=== PATIENT | male | born 1995 | race African-American/Black ===

== ENCOUNTER 2018-08-02 23:01 | Emergency (ER) | payer OTHER ==
[2018-08-02 23:45] LABS: #Basophils 0.1 thou/uL (0.0-0.2); #Eosinphils 0.1 thou/uL (0.0-0.7); #Monocytes 0.4 thou/uL (0.11-0.59); %Basophils 1.5 % (0.0-1.0); %Lymphocytes 43.4 % (21.0-51.0); %Monocytes 8.8 % (0.0-10.0); %Neutrophils 43.3 % (42.0-75.0); Hemoglobin 15.3 g/dL (14.0-18.0); Mean Corpuscular HGB CONC 33.2 g/dL (32.0-36.0); Mean Corpuscular Volume 87.5 fL (78.0-98.0); Mean Platelet Volume 8.2 fL (7.4-10.4); Platelet Count 224 thou/uL (130-400); RBC Distribution Width 12.7 % (11.5-14.5); Red Blood Cell (RBC) Count 5.25 mill/uL (4.70-6.10); White Blood Cell (WBC) Count 4.6 thou/uL (4.8-10.8)
--- NOTE | 2018-08-02 23:51 | RAD ---
CHEST ONE VIEW: 08/02/18 HISTORY: Chest pain. FINDINGS: The cardiac silhouette is magnified by projection. Pulmonary vasculature is unremarkable. Linear opac ity at the left posterior lung base is apparent. No lobar consolidation or evidence of pneumothorax. telephonic rn leads overlie the chest. IMPRESSION: Linear opacity left posterior lung base may represent linear atelectasis or mild infiltrate. Clinical correlation regarding other signs and symptoms of left basilar symptoms is required. PA and lateral views of the chest may be helpful for better characterization. POS: [facility]
[2018-08-03 00:06] LABS: ALT (SGPT) 14 U/L (8-55); AST (SGOT) 17 U/L (5-34); Albumin 4.3 g/dL (3.5-5.0); Alkaline Phosphatase 60 U/L (40-150); Anion Gap 10 mmol/L (10-20); BUN (Urea Nitrogen) 10 mg/dL (8.9-20.6); Bilirubin, Total 0.5 mg/dL (0.2-1.2); Calc. Creatinine Clearance 0 mL/min (70-130); Carbon Dioxide 27 mmol/L (22-29); Chloride 107 mmol/L (98-107); Estimated GFR-MDRD Greater than 90; Globulin 2.7 g/dL (2.4-3.5); Glucose 87 mg/dL (70-105); Potassium 3.9 mmol/L (3.5-5.1); Sodium 140 mmol/L (136-145)
[2018-08-03 00:11] LABS: CKMB 0.8 ng/mL (0-6.6); Troponin I Less than 0.010 ng/mL (< 0.028)
== END 2018-08-03 01:20 | disposition home or self-care (01) ==
LOC: EEVIPCON 23:01 → ERS 23:01
DX: R07.2 Precordial pain (principal); J45.909 Unspecified asthma, uncomplicated
CPT/HCPCS: 71045; 80053; 82553; 84484; 85025; 93005; J7620

== ENCOUNTER 2018-08-20 21:43 | Emergency (ER) | payer OTHER ==
--- NOTE | 2018-08-20 22:42 | RAD ---
PA AND LATERAL CHEST: INDICATIONS: Evaluate for razor blade FINDINGS: No radiopaque foreign body is seen involving the thorax. There are areas of subsegmental volume loss within the retrocardiac left lower lobe. No pleural effusion or pneumothorax is evident. IMPRESSION: 1. Mild left basilar atelectasis. 2. No radiopaque foreign body to suggest ingested razor blade within the region of the thorax. POS: [facility]
--- NOTE | 2018-08-20 22:43 | RAD ---
ABDOMEN TWO VIEWS: INDICATIONS: Swallowed razor blade. COMPARISON: Prior exam dated 08/20/2018. FINDINGS: The previously seen radiopaque foreign body involving the mid abdomen is no longer demonstrated. The bowel gas pattern is nonspecific but without evidence of obstruction. A mild amount of retained sto ol is seen within the colon. No acute osseous abnormality is evident. IMPRESSION: No radiopaque foreign body demonstrated. POS: [facility]
== END 2018-08-20 22:57 | disposition home or self-care (01) ==
LOC: ERS 21:43
DX: R45.851 Suicidal ideations (principal); J45.909 Unspecified asthma, uncomplicated; F32.9 Major depressive disorder, single episode, unspecified; Z79.899 Other long term (current) drug therapy
CPT/HCPCS: 36415; 71046; 74019; 74022; 74176; 80053; 80306; 80307; 84443; 85025; 93005; J2704